=== PATIENT | female | born 1975 | race Caucasian/White ===

== ENCOUNTER 2020-10-11 07:31 | Emergency (ER) | payer OTHER ==
[2020-10-11] MEDS ORDERED: SODIUM CHLORIDE 0.9% 1,000 ML IV STA (07:45)
[2020-10-11] MEDS ORDERED: PROCHLORPERAZINE 10 MG/2 ML VIAL IVP STA (07:45)
[2020-10-11] MEDS ORDERED: DEXAMETHASONE 10 MG/ML VIAL IVP STA (07:46)
[2020-10-11] MEDS ORDERED: diphenhydrAMINE INJ 50 MG/ML VIAL IVP STA (07:46)
[2020-10-11] MEDS ORDERED: KETOROLAC 30 MG/ML VIAL IVP STA (07:46)
--- NOTE | 2020-10-11 07:46 | ED Physician Documentation ---
PD HPI HEADACHE - Stated complaint Stated Complaint: HEAD PX - Chief complaint Chief Complaint: Heent - History obtained from History obtained from: Patient - History of Present Illness Timing - onset: How many days ago (5) Timing - onset during: Rest Timing - duration: Days (5) Timing - details: Gradual onset, Still present Location: Right Quality: Throbbing Associated symptoms: Eye pain (pressure behind the right eye). No: Nausea, Vomiting, Weakness, Numbness, Syncope, Seizure, Vision changes Improved by: Rest Worsened by: Moving Contributing factors: No: Anticoagulated Similar symptoms before: Diagnosis (migraine and headache) Recently seen: Clinic (routine visit 4 days before onset of headache) - Additional information Additional information: 45-year-old female with a history of migraine headaches that she has usually 2-3 times per month has developed a headache about 5 days ago that is atypical for her. She has headache behind her right eye with pressure she denies any nausea or vomiting she denies any photophobia she felt this was more of a sinus-like headache and it has not resolved. It has worsened it has been distracting to the point where she is unable to eat even. She states that she has been trying to stay hydrated. She had no luck treating this with Imitrex. She is been in to see her regular doctor on a routine visit 4 days before the onset of the symptoms. Following that she did have a 3-day period of time where she had sensitivity to the skin on the left side of her body. She has had symptoms similar to this for years of patches of skin with sensitivity. She is never broken out in rashes never had a specific diagnosis made for these. She states this resolved and the headache came on following that. Review of Systems Constitutional: denies: Fever Eyes: denies: Decreased vision, Photophobia Ears: denies: Loss of hearing, Ear pain, Tinnitus/ringing Nose: denies: Rhinorrhea / runny nose, Congestion Throat: denies: Sore throat Cardiac: denies: Chest pain / pressure, Palpitations Respiratory: denies: Dyspnea, Cough GI: denies: Abdominal Pain, Nausea, Vomiting, Constipation, Diarrhea : denies: Dysuria, Frequency Skin: denies: Rash Musculoskeletal: reports: Neck pain. denies: Back pain, Extremity pain Neurologic: denies: Generalized weakness, Focal weakness, Numbness PD PAST MEDICAL HISTORY - Present Medications Home Medications: Ambulatory Orders Medication Instructions Recorded Confirmed Buspirone HCl 15 mg PO DAILY 10/11/20 10/11/20 Fluticasone Furoate [Arnuity 50 mcg IH BID 10/11/20 10/11/20 Ellipta] Levothyroxine Sodium [Synthroid] 100 mcg PO DAILY 10/11/20 10/11/20 Montelukast [Singulair] 10 mg PO DAILY 10/11/20 10/11/20 Pantoprazole [Protonix] 40 mg PO DAILY 10/11/20 10/11/20 Promethazine [Phenergan] 25 mg PO Q6H PRN 10/11/20 10/11/20 traMADol [Ultram] 50 mg PO Q4-6H 10/11/20 10/11/20 - Allergies Allergies/Adverse Reactions: Allergies Allergy/AdvReac Type Severity Reaction Status Date / Time No Known Drug Allergies Allergy Verified 10/11/20 07:41 PD ED PE NORMAL - Vitals Vital signs reviewed: Yes (tachy and hypertensive ) - General General: Alert and oriented X 3, Well developed/nourished, Other (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 She does not appear photophobic.) - HEENT HEENT: Atraumatic, PERRL, EOMI, Ears normal, Moist mucous membranes, Pharynx benign, Dentition benign - Neck Neck: Supple, no meningeal sign, No bony TTP, Other (The neck is supple there is some point tenderness at the insertion of the trapezius into the occiput on the right side. There is no corresponding tenderness on the left side. 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, No motor deficit, No sensory deficit, Normal speech Eye Opening: Spontaneous Motor: Obeys Commands Verbal: Oriented GCS Score: 15 - Psych Psych: Normal mood, Normal affect Results - Vitals Vitals: Vital Signs - 24 hr 04/03/2510/11/20 10/11/20 07:37 08:13 09:29 Temperature 37.3 C Heart Rate 137 H 120 H 105 H Respiratory 16 20 20 Rate Blood Pressure 141/103 H 126/94 H 153/101 H O2 Saturation 97 96 95 10/11/20 10:09 Temperature Heart Rate 107 H Respiratory 16 Rate Blood Pressure 151/75 H O2 Saturation 95 Oxygen O2 Source Room air - Labs Labs: Laboratory Tests 10/11/20 10/11/20 10/11/20 07:30 07:30 08:45 WBC 12.5 H RBC 5.34 Hgb 15.4 Hct 46.6 MCV 87.3 MCH 28.8 MCHC 33.0 RDW 12.7 Plt Count 409 MPV 9.3 Neut # (Auto) 9.2 H Lymph # (Auto) 2.2 [place] # (Auto) 1.0 Eos # (Auto) 0.1 Baso # (Auto) 0.1 Absolute Nucleated RBC 0.00 Nucleated RBC % 0.0 Sodium 137 Potassium 4.6 Chloride 103 Carbon Dioxide 23 Anion Gap 11.0 BUN 11 Creatinine 1.2 H Estimated GFR (MDRD) 48 L Glucose 190 H Calcium 9.5 Total Bilirubin 0.8 AST 22 ALT 19 Alkaline Phosphatase 80 Total Protein 8.4 H Albumin 4.4 Globulin 4.0 Albumin/Globulin Ratio 1.1 Lipase 19 L Nasal Adenovirus (PCR) NOT DETECTED Nasal B. parapertussis DNA (PCR) NOT DETECTED Nasal Coronavir 229E PCR NOT DETECTED Nasal Coronavir HKU1 PCR NOT DETECTED Nasal Coronavir NL63 PCR NOT DETECTED Nasal Coronavir OC43 PCR NOT DETECTED Nasal Enterovir/Rhinovir PCR NOT DETECTED Nasal Influenza B PCR NOT DETECTED Nasal Influenza A PCR NOT DETECTED Nasal Parainfluen 1 PCR NOT DETECTED Nasal Parainfluen 2 PCR NOT DETECTED Nasal Parainfluen 3 PCR NOT DETECTED Nasal Parainfluen 4 PCR NOT DETECTED Nasal RSV (PCR) NOT DETECTED Nasal B.pertussis DNA PCR NOT DETECTED Nasal C.pneumoniae (PCR) NOT DETECTED Gibran Human Metapneumo PCR NOT DETECTED Nasal M.pneumoniae (PCR) NOT DETECTED Nasal SARS-CoV-2 (PCR) NOT DETECTED - Rads (name of study) CT head without Radiology: Prelim report reviewed (Impression: 1. Hyperdense dural sinuses as described above concerning for dural sinus thrombosis given the patient's clinical history. Further evaluation can be done with MRI of brain W/O and W contrast and MR venogram of the brain. No gross CT evidence of acute intracranial bleed or midline shif), Discussed with rads, EMP read indepedently, See rad report CT venogram head Radiology: Prelim report reviewed (Impression: Dural sinus thrombosis is seen.), EMP read indepedently, See rad report PD MEDICAL DECISION MAKING - ED course Complexity details: reviewed results, re-evaluated patient, considered differential, d/w patient ED course: 35-year-old female with a history of migraine headaches has developed a migraine that is atypical for her and on evaluation she does have some tenderness to the insertion of the trapezius into the occiput. She is treated here in the emergency department with a migraine cocktail and has improvement in her sympt oms. Her history was concerning for an elevated blood pressure and tachycardia and this did not fit with migraine or tension headache. For this reason CT of the head was undertaken which demonstrated presence of dural sinus thrombosis. Images were pushed to [facility] and [place]. [facility] called us back with the neurologist Dr. White excepting the patient.He recommended treatment of the patient's blood pressurw. Dr. White recommends a cerebral venogram to confirm the diagnosis and at that point a heparin drip without a bolus protocol and transfer. The images confirm the diagnoses and arrangements for transfer with a heparin drip running are made. Departure - Departure Disposition: 02 Transfer Acute Care [facility]osp Clinical Impression: Cerebral venous sinus thrombosis, acute Condition: Stable
[2020-10-11 08:04] LABS: BASOPHILS # (AUTO) 0.1 10^3/uL (0.0-0.1); BASOPHILS % (AUTO) 0.8 %; EOSINOPHILS # (AUTO) 0.1 10^3/uL (0.0-0.7); EOSINOPHILS % (AUTO) 0.6 %; HCT - HEMATOCRIT 46.6 % (37.0-47.0); HGB - HEMOGLOBIN 15.4 g/dL (12.0-16.0); LYMPHOCYTES # (AUTO) 2.2 10^3/uL (1.5-3.5); LYMPHOCYTES % (AUTO) 17.2 %; MEAN CORPUSCULAR HEMOGLOBIN 28.8 pg (27.0-31.0); MEAN CORPUSCULAR VOLUME 87.3 fL (81.0-99.0); MEAN PLATELET VOLUME 9.3 fL (7.9-10.8); MONOCYTES % (AUTO) 7.6 %; NEUTROPHILS # (AUTO) 9.2 10^3/uL (1.5-6.6); NEUTROPHILS % (AUTO) 73.4 %; PLT - PLATELET COUNT 409 10^3/uL (130-450); RED BLOOD COUNT 5.34 10^6/uL (4.20-5.40); RED CELL DISTRIBUTION WIDTH 12.7 % (12.0-15.0); WHITE BLOOD COUNT 12.5 x10^3/uL (4.8-10.8)
[2020-10-11 08:18] LABS: ALBUMIN 4.4 g/dL (3.2-5.5); ALBUMIN/GLOBULIN RATIO 1.1 (1.0-2.2); BILIRUBIN,TOTAL 0.8 mg/dL (0.2-1.0); CALCIUM 9.5 mg/dL (8.5-10.3); CREATININE 1.2 mg/dL (0.4-1.0); POTASSIUM 4.6 mmol/L (3.5-5.0); TOTAL PROTEIN 8.4 g/dL (6.7-8.2)
--- NOTE | 2020-10-11 09:01 | CT Report ---
PROCEDURE: HEAD WO INDICATIONS: R anum-cranial pain burning skin on left TECHNIQUE: Noncontrast 4.5 mm thick angled axial sections acquired from the foramen magnum to the vertex. For r adiation dose reduction, the following was used: automated exposure control, adjustment of mA and/or kV according to patient size. COMPARISON: None. FINDINGS: Image quality: Excellent. CSF spaces: Basal cisterns are patent. No extra-axial fluid collections. Ventricles are normal in size and shape. Brain: Hyperintense distal supraspinatus at the sinus near torcular herophili as well as asymmetric hyperdensity within right transverse sinus is seen. No midline shift. No intracranial masses or hemo rrhage. Esparza-white matter interface is normal. Skull and face: Calvarium and visualized facial bones are intact, without suspicious lesions. Sinuses: Visualized sinuses and mastoids are clear. IMPRESSION: 1. Hyperdense dural sinuses as described above concerning for dural sinus thrombosis given patient's clinical history. Further evaluation can be done with MRI of brain without and with contrast and MR v enogram of the brain. 2. No gross CT evidence of acute intracranial bleed or midline shift. Findings were reported to Dr. Swanson in the ER at 8:55 AM on 10/11/2020. Reviewed by: Sebas Bishop MD on 10/11/2020 8:59 AM PDT Approved by: Sebas Bishop MD on 10/11/2020 8:59 AM PDT Station ID: [id number]
[2020-10-11] MEDS ORDERED: IOPAMIDOL-300 100 ML VIAL ONE (09:32)
[2020-10-11 09:50] LABS: B. PARAPERTUSSIS- RESP PCR PAN NOT DETECTED; B. PERTUSSIS- RESP PCR PANEL NOT DETECTED; C. PNEUMONIAE- RESP PCR PANEL NOT DETECTED; CORONAVIRUS 229E-RESP PCR NOT DETECTED; CORONAVIRUS HKU1-RESP PCR NOT DETECTED; CORONAVIRUS NL63-RESP PCR NOT DETECTED; CORONAVIRUS OC43-RESP PCR NOT DETECTED; HUMAN METAPNEUMOVIRUS NOT DETECTED; INFLUENZA A- RESP PCR PANEL NOT DETECTED; INFLUENZA B - RESP PCR PANEL NOT DETECTED; M. PNEUMONIAE- RESP PCR PANEL NOT DETECTED; PARAINFLUENZA VIRUS 1 NOT DETECTED; PARAINFLUENZA VIRUS 2 NOT DETECTED; PARAINFLUENZA VIRUS 3 NOT DETECTED; PARAINFLUENZA VIRUS 4 NOT DETECTED; RHINOVIRUS/ENTEROVIRUS NOT DETECTED; RSV- RESP PCR PANEL NOT DETECTED; SARS-CoV-2 -RESP PCR PANEL NOT DETECTED
[2020-10-11 10:10] VITALS: BP 151/75
--- NOTE | 2020-10-11 10:10 | CT Report ---
PROCEDURE: HEAD W INDICATIONS: CT venogram for sinus thrombosis CONTRAST: IV CONTRAST: Isovue 300 ml: 100 PO CONTRAST: *NO PO CONTRAST TECHNIQUE: 4.5 mm thick angled axial sections acquired from the foramen magnum to the vertex after the administr ation of intravenous contrast. For radiation dose reduction, the following was used: automated expo sure control, adjustment of mA and/or kV according to patient size. COMPARISON: 52 without contrast, 10/11/2020. FINDINGS: Image quality: Excellent. CSF Spaces: Basal cisterns are patent. No extra-axial fluid collections. Ventricles are normal in size and shape. Brain: In this patient with this given history, scrutiny is given to the dural sinuses. The posterio r aspect of the superior sagittal sinus demonstrates thrombosis, as well as thrombus seen involving t he right transverse sinus. This can be seen on series 4 image 33 as well as on series 3 image 16. No midline shift. No intracranial bleeds or masses. No abnormal intracranial enhancement. Esparza-whi te interface appears normal. Skull and face: Calvarium and visualized facial bones appear intact, without suspicious lesions. Sinuses: Visualized sinuses and mastoids are clear. IMPRESSION: Dural sinus thrombosis is seen. Note: Case discussed by telephone with Dr. Swanson at 9:06 AM [place] time on 10/11/2020. Reviewed by: Michael Arthur MD on 10/11/2020 9:08 AM KELLEN Approved by: Michael Arthur MD on 10/11/2020 9:08 AM KELLEN Station ID: [id number]
[2020-10-11] MEDS ORDERED: HEPARIN 25000UNITS/500ML (D5W) 25,000 UNIT/500 ML BAG IV SCH (11:00)
[2020-10-11] MEDS ORDERED: IOPAMIDOL-300 100 ML VIAL IVP ONE (11:30)
== END 2020-10-11 10:54 | disposition short-term general hospital (02) ==
LOC: ED 07:31
DX: I67.6 Nonpyogenic thrombosis of intracranial venous system (principal); G43.909 Migraine, unspecified, not intractable, without status migrainosus; R03.0 Elevated blood-pressure reading, without diagnosis of hypertension; R00.0 Tachycardia, unspecified; Z20.822 Contact with and (suspected) exposure to COVID-19
CPT/HCPCS: 0202U; 36415; 70450; 70460; 80053; 83690; 85025; 96374; 96375; 99284; 99285; J1200; Q9967

== ENCOUNTER 2020-10-22 08:00 | Outpatient (CLI) | payer OTHER | END 2020-10-22 08:01 | disposition home or self-care (01) | LOC: LAB 08:00 | PROVIDERS: ATTEND Family Medicine | DX: G08 Intracranial and intraspinal phlebitis and thrombophlebitis (principal) | CPT/HCPCS: 85610 ==

== ENCOUNTER 2020-10-25 08:00 | Outpatient (CLI) | payer OTHER | END 2020-10-25 23:59 | disposition home or self-care (01) | LOC: LAB 08:00 | PROVIDERS: ATTEND Family Medicine | DX: G08 Intracranial and intraspinal phlebitis and thrombophlebitis (principal) | CPT/HCPCS: 85610 ==

== ENCOUNTER 2020-10-28 08:02 | Outpatient (CLI) | payer OTHER | END 2020-10-28 08:03 | disposition home or self-care (01) | LOC: LAB 08:02 | PROVIDERS: ATTEND Family Medicine | DX: G08 Intracranial and intraspinal phlebitis and thrombophlebitis (principal) | CPT/HCPCS: 85610 ==